=== PATIENT | male | born 1995 ===

== ENCOUNTER 2017-10-17 11:00 | Emergency (ER) | payer MEDICAID, OTHER ==
[2017-10-17 11:54] VITALS: BP 119/76; PULSE 92; RESP 18; TEMP 98.3; O2SAT 98
--- NOTE | 2017-10-17 13:34 | ED PDOC ---
HPI: Back Time Seen by Provider: 10/17/17 12:36 Chief Complaint (Nursing): Back Pain Chief Complaint (Provider): Left upper back pain, SI intermittently History Per: Patient History/Exam Limitations: no limitations Onset/Duration Of Symptoms: Days Current Symptoms Are (Timing): Still Present Additional Complaint(s): 22 yo male with no medical problems presents for evaluation of right upper back pain for 2 days. Pt denies trauma. Pain worse with movement. No change in activities. Pt states he did not take anything for pain today. No cough, no abdominal pain. Pt also states he has been having a lot of "thoughts". Pt is not going into detail but when asked if he has ever thought about hurting himself he said sometimes but not right now. Pt than asks how long it will take to see someone from psychiatry. PT states he has to take his mother to an appointment. Past Medical History Reviewed: Historical Data, Nursing Documentation, Vital Signs Vital Signs: Last Vital Signs Temp 98.3 F 10/17/17 11:51 Pulse 92 H 10/17/17 11:51 Resp 18 10/17/17 11:51 BP 119/76 10/17/17 11:51 Pulse Ox 98 10/17/17 11:51 - Medical History PMH: No Chronic Diseases - Surgical History Surgical History: No Surg Hx - Family History Family History: States: No Known Family Hx - Living Arrangements Living Arrangements: With Family - Social History Current smoker - smoking cessation education provided: No Alcohol: None Drugs: Denies - Home Medications Home Medications: Ambulatory Orders Medication Instructions Recorded Cyclobenzaprine [Cyclobenzaprine 10 mg PO Q8H #20 tab 10/17/17 HCl] Ibuprofen [Motrin Tab] 800 mg PO Q6H PRN #20 tab 10/17/17 - Allergies Allergies/Adverse Reactions: Allergies Allergy/AdvReac Type Severity Reaction Status Date / Time tree and shrub pollen Allergy CONGESTION Verified 10/17/17 11:55 Review of Systems ROS Statement: Except As Marked, All Systems Reviewed And Found Negative Constitutional: Negative for: Fever, Chills Musculoskeletal: Positive for: Back Pain Skin: Negative for: Rash Neurological: Negative for: Weakness, Numbness Psych: Positive for: Depression Physical Exam - Reviewed Nursing Documentation Reviewed: Yes Vital Signs Reviewed: Yes - Physical Exam Appears: Positive for: Well, Non-toxic, No Acute Distress Head Exam: Positive for: ATRAUMATIC, NORMAL INSPECTION, NORMOCEPHALIC Skin: Positive for: Normal Color, Warm, DRY Eye Exam: Positive for: Normal appearance ENT: Positive for: Normal ENT Inspection Neck: Positive for: Normal, Painless ROM Cardiovascular/Chest: Positive for: Regular Rate, Rhythm Respiratory: Positive for: Normal Breath Sounds. Negative for: Accessory Muscle Use, Respiratory Distress Back: Positive for: Normal Inspection, Muscle Spasm Extremity: Positive for: Normal ROM Neurologic/Psych: Positive for: Alert, Oriented - ECG O2 Sat by Pulse Oximetry: 98 Medical Decision Making Medical Decision Making: Pt reports feeling better on re-evaluation after flexeril and motrin. Crisis evaluation completed. Disposition - Clinical Impression Clinical Impression: Back pain, Depression Counseled Patient/Family Regarding: Diagnosis, Need For Followup, Rx Given - Disposition Referrals: [facility] [Outside] Disposition: Routine/Home Disposition Time: 14:20 Condition: GOOD Prescriptions: Cyclobenzaprine [Cyclobenzaprine HCl] 10 mg PO Q8H #20 tab Ibuprofen [Motrin Tab] 800 mg PO Q6H PRN #20 tab PRN Reason: Pain Instructions: Depression, Upper Back Pain (DC) Forms: [employer] (Green[place]ic)
== END 2017-10-17 14:51 | disposition home or self-care (01) ==
LOC: H.ER 11:00
DX: M54.6 Pain in thoracic spine (principal); F32.9 Major depressive disorder, single episode, unspecified